=== PATIENT | female | born 1970 | race Caucasian/White ===

== ENCOUNTER 2017-09-21 11:40 | Emergency (ER) | payer OTHER ==
[~2017-09-21] VITALS: Ht 167.6 cm; Wt 87.0 kg
[2017-09-21 11:46] VITALS: BP 108/70
== END 2017-09-21 12:52 | disposition home or self-care (01) ==
LOC: ED 12:46
DX: S90.122A Contusion of left lesser toe(s) without damage to nail, initial encounter (principal); E06.3 Autoimmune thyroiditis; W19.XXXA Unspecified fall, initial encounter; Y93.89 Activity, other specified; Y92.89 Other specified places as the place of occurrence of the external cause; Y99.8 Other external cause status
CPT/HCPCS: 99284

== ENCOUNTER 2018-09-02 08:54 | Emergency (ER) | payer OTHER ==
[~2018-09-02] VITALS: Ht 167.6 cm; Wt 87.1 kg
[2018-09-02 08:59] VITALS: BP 117/79
--- NOTE | 2018-09-02 09:12 | NUR ---
THIS IS A 48 YEAR OLD FEMALE WHO C/O OF NAUSA, ABD AND LOWER BACK PAIN. PT HAS A HX OF KIDNEY STONES. EXPLAINED NEED FOR UA. PT VERBALIZED UNDERSTANDING
[2018-09-02] MEDS ORDERED: KETOROLAC 30 MG/1 ML ONE (09:19)
--- NOTE | 2018-09-02 09:26 | NUR ---
MEDICATED PER ORDERS, URINE TO LAB, EXPLAINED PLAN OF CARE, PT VERBALZIED UNDERSTANDING. DENIES NAY NEED FOR ANTI-NAUSEA AT THIS TIME.
[2018-09-02] MEDS ORDERED: ONDANSETRON ODT 4 MG PO ONE (09:30)
[2018-09-02] MEDS ORDERED: KETOROLAC 30 MG/1 ML IM ONE (09:30)
[2018-09-02 09:45] LABS: BASOPHILS # (AUTO) 0.04 x10^3/uL (0-0.1); BASOPHILS % (AUTO) 1 % (0-1); EOSINOPHILS # (AUTO) 0.11 x10^3/uL (0-0.4); EOSINOPHILS % (AUTO) 2 % (1-7); LYMPHOCYTES # (AUTO) 1.26 x10^3/uL (1-3.4); LYMPHOCYTES % (AUTO) 17 % (22-44); MD NO; MEAN CORPUSCULAR HEMOGLOBIN 32.5 pg (27.0-34.8); MEAN CORPUSCULAR HGB CONC 33.9 g/dL (32.4-35.8); MEAN CORPUSCULAR VOLUME 95.8 fL (80-100); MONOCYTES # (AUTO) 0.57 x10^3/uL (0.2-0.8); MONOCYTES % (AUTO) 8 % (2-9); NEUTROPHILS # (AUTO) 5.25 x10^3/uL (1.8-6.8); NEUTROPHILS % (AUTO) 73 % (42-75); PLATELET COUNT 282 x10^3/uL (130-400); RED BLOOD COUNT 4.27 x10^6/uL (3.82-5.3); RED CELL DISTRIBUTION WIDTH 13.7 % (9.6-15.2)
[2018-09-02 09:49] LABS: MICROSCOPIC AUTO
[2018-09-02 09:49] LABS: ALANINE AMINOTRANSFERASE 24 U/L (12-78); ALBUMIN 3.6 g/dL (3.4-5.0); ANION GAP 7 mmol/L (5-15); CHLORIDE 110 mmol/L (98-107); CREATININE 0.75 mg/dL (0.55-1.02)
[2018-09-02 09:54] LABS: ALKALINE PHOSPHATASE 66 U/L (45-117); BILIRUBIN,TOTAL 0.2 mg/dL (0.2-1.0); TOTAL PROTEIN 6.8 g/dL (6.4-8.2)
[2018-09-02 09:57] LABS: CULTURE INDICATED? YES
--- NOTE | 2018-09-02 10:08 | NUR ---
PT RESTING, VERBALIZED UNDERSTANDING
[2018-09-02] MEDS ORDERED: CEFTRIAXONE PMX 1GM/50ML 50 ML ONE (10:22)
[2018-09-02] MEDS ORDERED: CEFTRIAXONE PMX 1GM/50ML 50 ML IVPB ONE (10:30)
[2018-09-02] MEDS ORDERED: SODIUM CHLORIDE FLUSH 10ML SYR IVF ONE (10:30)
--- NOTE | 2018-09-02 10:55 | NUR ---
BLOOD CULTURES BEING DRAWN AT THIS TIME.
--- NOTE | 2018-09-02 12:31 | NUR ---
Patient/Caregiver given discharge instructions and they have confirmed that they understand the instructions. Patient ambulatory with steady gait.
== END 2018-09-02 12:33 | disposition home or self-care (01) ==
LOC: ED 09:07
DX: N20.2 Calculus of kidney with calculus of ureter (principal); N39.0 Urinary tract infection, site not specified; R11.2 Nausea with vomiting, unspecified; E03.9 Hypothyroidism, unspecified
CPT/HCPCS: 36415; 74018; 76770; 80053; 81001; 83605; 83690; 84703; 85025; 87040; 87086; 96365; 96372; 99284; J0696; J1885

== ENCOUNTER 2019-01-28 07:32 | Outpatient (CLI) | payer OTHER | END 2019-01-28 23:59 | disposition home or self-care (01) | LOC: CFH 07:32 | PROVIDERS: ATTEND Nurse Practitioner Family | DX: Z12.31 Encounter for screening mammogram for malignant neoplasm of breast (principal) | CPT/HCPCS: 77067 ==